=== PATIENT | female | born 1975 | race Hispanic/Latino ===

== ENCOUNTER 2025-05-15 06:20 | Day surgery (SDC) | payer OTHER ==
--- NOTE | 2025-05-10 13:24 | EKG ---
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
[2025-05-10 13:33] LABS: IMMATURE GRANULOCYTE ABSOLUTE 0.01 K/uL (0-1); NUCLEATED RED BLOOD CELLS 0.0 % (0.0-0.19); PLATELET COUNT (AUTO) 237 K/uL (130-400); RED BLOOD CELL COUNT(AUTO) 3.83 MIL/uL (4.00-5.50); RED CELL DISTRIBUTION WIDTH 14.3 % (11.0-15.5); WHITE BLOOD COUNT (AUTO) 5.4 K/uL (4.8-10.8)
[2025-05-10 13:44] LABS: INR 1.05 (0.85-1.15)
[2025-05-10 13:45] LABS: CREATININE 0.6 mg/dL (0.5-1.0); GLOMERULAR FILTR. RATE CALC 111.0 mL/min (>90); GLUCOSE,RANDOM 92.0 mg/dL (70-105); SODIUM SERUM 144.0 mmol/L (136-145); UREA NITROGEN, BLOOD 10.0 mg/dL (7-18)
[2025-05-10 14:18] VITALS: BP 134/76; PULSE 61; RESP 17; TEMP 97.5
[2025-05-15] VITALS (16 sets, daily range): BP systolic 110–130; BP diastolic 68–85; PULSE 52–74; RESP 12–18; TEMP 97.1–98.1
[~2025-05-15] VITALS: Ht 162.6 cm; Wt 80.3 kg
[~2025-05-15 06:20] MED LIST: CYAN10007 IM; HYDR-3421 PO; LEVO5TAB29 PO; MONT-39 PO
[2025-05-15] MEDS ORDERED: LACTATED RINGERS 1000ML 1,000 ML IV ONE (06:34)
[2025-05-15] MEDS ORDERED: MIDAZOLAM HCL 1 MG/ML 2ML VIAL ONE (06:53)
[2025-05-15] MEDS ORDERED: LIDOCAINE PF 100MG/5ML (2%) SYRINGE 5ML ONE (06:54)
[2025-05-15] MEDS ORDERED: INDOCYANINE GREEN 25 MG VIAL IJ ONE (07:28)
[2025-05-15] MEDS: INDOCYANINE GREEN 25 MG VIAL IJ ONE (08:10)
[2025-05-15] MEDS ORDERED: GLYCOPYRROLATE 0.2 MG/ML 5 ML VIAL ONE (08:44)
[2025-05-15] MEDS ORDERED: SUGAMMADEX SODIUM 200 MG/2 ML VIAL IV ONE (09:01)
--- NOTE | 2025-05-15 09:50 | OP ---
Operative Note: DATE OF PROCEDURE: 05/15/25 SURGEON: FLORY CHRISTIANSON MD FINISHING RANGE SUPERVISOR: [Please review operative record] ANESTHESIA: [General and local] ANESTHESIOLOGIST/NICKEL PLANT OPERATOR: [Please review operative record] PREOPERATIVE DIAGNOSIS: [Chronic cholecystitis] POSTOPERATIVE DIAGNOSIS: [Chronic cholecystitis, intraoperative peroneal adhesions] SYNOPSIS: [Mildly inflamed, enlarged gallbladder in ic green cholangiography appropriately identifying cystic duct, hepatic duct and bile duct. No signs of ductal dilation. No intraductal filling defects noted. Omental adhesions mostly in the suprapubic region.] PROCEDURE: [1. Robotic assisted laparoscopic cholecystectomy. 2. Laparoscopic lysis of adhesions greater than 1 hour. 3. Ic green cholangiography] ESTIMATED BLOOD LOSS: [10 cc] INDICATIONS: [Patient is a 49-year-old female with chronic right upper quadrant epigastric and suprapubic abdominal pain, most pronounced postprandially. Patient underwent imaging showing biliary sludge in the gallbladder. Patient failed conservative management with dietary changes and analgesia. Recommendation was given for cholecystectomy and diagnostic laparoscopy. Risks, benefits, alternatives were discussed with the patient. All questions were answered. Patient agreed to proceed with surgical procedure.] DESCRIPTION OF PROCEDURE: [After appropriate consent was obtained, the patient was brought into the operating room and placed in supine position on the operating table. SCDs were placed, preop antibiotics were given. Patient underwent induction of general anesthesia, endotracheal intubation. Patient was then prepped and draped in usual sterile fashion. Time-out was performed. Through a left subcostal incision, Veress needle was inserted into the peritoneal cavity. Insufflation was allowed to 12 mmHg. Through a supraumbilical incision, 8 mm trocar and laparoscope were inserted into the peritoneal cavity using Astrum Solarview. Veress needle and this vicinity were examined with no signs of injury. Rest of my trocars were all placed under direct visualization. Patient was positioned on a reverse Trendelenburg at 20. The Shelia robot was docked. Upon examination of the gallbladder, it appeared enlarged. A few omental adhesions were taken down using hook electrocautery. The liver and gallbladder were retracted cephalad exposing area for Calot's triangle dissection. Using ho ok electrocautery, dissection was accomplished. IC green cholangiography showed proper identification of the cystic duct, visualization of hepatic and common bile duct. Cystic artery was also isolated. Cystic artery was clipped once and cauterized and sharply divided. Cystic duct was clipped 3 times with two of these clips staying behind after sharp division. Gallbladder was removed from the gallbladder fossa using bipolar energy. Hemostasis was achieved with bipolar energy as well. Once removed from the gallbladder fossa, gallbladder was placed in an Endo-Catch bag. DermLinkinci robot was undocked at this time. Gallbladder was removed from the peritoneal cavity with a bag through an 8 mm trocar site. We evaluated the entire peritoneal cavity for any signs that would explain the patient's abdominal pain. There were a few suprapubic omental adhesions to the abdominal wall. Likely from previous gynecological procedures. Mostly of omentum. This were taken down using hook electrocautery. The liver had no ov ert times of cirrhosis. Spleen had no pathologies identified. Small bowel and large bowel with no overt abnormalities. Final inspection revealed adequate hemostasis, no concerns for leakage. Counts were correct at the end of the case. All instruments were removed. Abdomen was allowed to deflate. Skin incisions were closed with 4-0 Monocryl. Dermabond was applied over the incisions. Patient tolerated the procedure well. Was transferred to recovery in a good condition] FLORY CHRISTIANSON MD May 15, 2025 09:50
--- NOTE | 2025-05-15 09:53 | DS ---
Discharge Summary Hospital Course Patient is a 49-year-old female who was admitted from the outpatient setting for elective robotic assisted laparoscopic cholecystectomy due to abnormal findings and the imaging including biliary sludge. In addition to diagnostic laparoscopy with findings of intra-abdominal adhesions that were taken down during the same surgery on 05/15/2025. Patient with no complications at the time. Currently in recovery. No major concerns at this time. Remains hemodynamically stable, afebrile. Normal sinus rhythm. Aerating well on 2 L nasal cannula. Abdomen is benign, incisions clean dry and intact. No rebound or guarding. Appropriately tender to palpation. Return precautions given including fevers of 101.5 or higher, worsening abdominal pain, intractable nausea or vomiting. Patient to avoid lifting more than 20 lb for a month. Advance diet as tolerated. Okay to shower 24 hours after the procedure, no need to cover the incisions. Patient will be observed in recovery and discharged home per anesthesia protocol. Follow up already in place on 05/22/2025 at 10:45 a.m. at the [facility] office. Postop medications already submitted to the patient's pharmacy. FLORY CHRISTIANSON MD May 15, 2025 09:53
--- NOTE | 2025-05-15 10:44 | NUR ---
DRESSING: DERMABOND X 4 TO ABDOMEN DRY/INTACT WITH NO ACTIVE BLEEDING PRESENT. NO REDNESS/SWELLING NOTED TO SURROUNDING AREA.
--- NOTE | 2025-05-15 11:14 | NUR ---
DRESSING: DERMABOND X 4 TO ABDOMEN REMAIN DRY/INTACT WITH NO ACTIVE BLEEDING NOTED. NO REDNESS/SWELLING NOTED TO SURROUNDING AREA.
== END 2025-05-15 11:15 | disposition home or self-care (01) ==
LOC: DAH 06:20
PROVIDERS: ATTEND Surgery
DX: K81.1 Chronic cholecystitis (principal); F41.9 Anxiety disorder, unspecified; K44.9 Diaphragmatic hernia without obstruction or gangrene; K76.0 Fatty (change of) liver, not elsewhere classified; F32.A Depression, unspecified; Z90.710 Acquired absence of both cervix and uterus; Z90.721 Acquired absence of ovaries, unilateral; Z79.899 Other long term (current) drug therapy
CPT/HCPCS: 80048; 85025; 85610; 85730; 86850 ×2; 86900 ×2; 86901 ×2; 36415 ×2; 93005; 47563; 64417; 64488; 88304; A6260; J1100; J1885; A4663; J7030; J7120 ×2; A4215 ×2; J3010 ×2; J0665; J3490 ×4; J2003; J2250; J2704; J2405; J2795; J2371; J0690 ×2; A4649; A4930 ×2; A4213; A4222; A4221; A4216; A4223 ×2; A4600